=== PATIENT | male | born 1945 | race Caucasian/White ===

== ENCOUNTER 2016-07-22 12:35 | Day surgery (SDC) | payer MEDICARE, MEDICAID ==
[~2016-07-22] VITALS: Ht 180.3 cm; Wt 71.0 kg
[~2016-07-22 12:35] MED LIST: CHOL100045 PO; CHOL200025 PO; DONE5TAB30 PO; FOLI1TAB18 PO; FUR20 PO; GABA-502 PO; HYDR-656 PO; IBUP400T22 PO; KLO5T PO; Lactated Ringer's 1,000 ML IV ONE; MULT-1018 PO; OXCA150T PO; POTA10TA12 PO; PRAZ1CAP2 PO; RISP1SOL PO; TIOT18CA3 IH
[2016-07-22] MEDS ORDERED: Propofol 10,000 mCg/mL 20 mL Inj ONE (12:36)
[2016-07-22 13:05] VITALS: BP 127/78; PULSE 76; RESP 16; O2SAT 94
[2016-07-22] MEDS ORDERED: MetoCLOpramide 5 mg/mL 2 mL Inj IVPUSH PRN (13:10)
[2016-07-22] MEDS ORDERED: Lactated Ringer's 1,000 ML IV SCH (13:10)
[2016-07-22] MEDS ORDERED: Ondansetron 2 mg/mL 2 mL Inj IVPUSH PRN (13:10)
--- NOTE | 2016-07-22 13:18 | PCM.HPANE ---
Patient Data Date of Service: Jul 22, 2016 ([id number]) Surgeon Admitting Provider: Attending Provider:Corinne Ortiz MD Primary Care Physician:Heidi Cheung MD Other Provider:Garcia Bateman Anesthesia Reason for Visit Personal History Of Colon Polyps Ht/WT & BMI Height (Feet): 5 Height (Inches): 11 Weight (Kilograms): 71 Body Mass Index 21.00 Allergies Coded Allergies: No Known Allergies (Verified Allergy, Unknown, 02/04/16) Past Anesthesia History Anesthesia History: Denies:: Abnormal Airway, Anesthesia Reactions, Difficult Intubation, Fam Anesthesia Reaction, Fam Malignant Hypertherm, Malignant Hyperthermia Diabetes History Hx Diabetes?: No MRSA MRSA: No Medications Blood Thinner: Aspirin Last Dose Blood Thinner: Jun 23, 2016 Home Meds Incl Beta Pily: No Active Scripts Potassium Chloride ER 10 Meq [id number] Meq PO DAILY #60 TABLET Ref 0 TAKE WITH FOOD Prov:Lauro Flores MD 04/12/15 Furosemide 20 Mg Tab60 Mg PO DAILY #90 TABLET Ref 0 Prov:Lauro Flores MD 04/12/15 Reported Medications Cholecalciferol (Vitamin D3) (Vitamin D3)2,000 Unit Tablet2,000 Unit PO 07/21/16 Tiotropium [place] (Spiriva)18 Mcg Cap.w.dev18 Mcg IH DAILY #1 PKG Ref 0 07/21/16 Oxcarbazepine 150 Mg [id number] Mg PO BID 30 Days 07/21/16 Risperidone 1 Mg/1 Ml Solution1 Mg PO BID #1 BOTTLE Ref 0 02/04/16 Prazosin 1 Mg Capsule1 Mg PO HS 02/04/16 Gabapentin 300 Mg [id number] Mg PO TID Ref 0 02/04/16 Donepezil 5 Mg Tablet5 Mg PO HS Ref 0 02/04/16 Clonazepam 0.5 Mg Tablet0.5 Mg PO HS PRN For Anxiety Ref 0 02/04/16 Cholecalciferol (Vitamin D3) (Vitamin D)1,000 Unit Capsule1,000 Unit PO DAILY # 1 BOTTLE Ref 0 01/10/15 Folic Acid 1 Mg Tablet1 Mg PO DAILY 30 Days 01/10/15 Multivitamin (Multi Vitamin Daily)1 Each Tablet1 Each PO DAILY 30 Days Ref 0 01/10/15 hydrOXYzine Hcl (HydrOXYzine Hcl)25 Mg Iyzruf17 Mg PO DAILY PRN For Nausea 11/27/14 Ibuprofen 400 Mg [id number] Mg PO BID PRN For Pain Ref 0 09/26/14 Discontinued Reported Medications Amantadine 100 Mg [id number] Mg PO BID 02/05/16 Doxazosin Mesylate 4 Mg Tablet4 Mg PO HS #30 TABLET Ref 0 09/26/14 Lisinopril 5 Mg Tablet5 Mg PO DAILY #30 TABLET Ref 0 09/26/14 History HEENT History: Denies:: Abnormal Airway Difficult Intubation Dysphagia Hearing Problem Denture Type: Full- Upper Full- Lower Hx of Heart Problems?: No Cardiovascular History: Denies:: AICD Atrial Fibrillation Chest Pain Congestive Heart Failure Hypertension Pacemaker Valvular Heart Disease Hx of Respiratory Problem?: Yes Respiratory History: Positive for:: Asthma COPD Cough Dyspnea (FUENTES,SOB) Emphysema Pneumonia Denies:: Tuberculosis Use of C-PAP Machine Hx Neurologic Problems?: Yes Neurological History: Positive for:: Dementia Seizures (HX OF-R/T ETOH WITHDRAWAL) Denies:: CVA Other History/Comments schizoaffective disorder on lithium Hx of GI Problems?: Yes Gastrointestinal History: Positive for:: Gastroesphageal Reflux Denies:: Cirrhosis Diverticulitis Gall Bladder Disease Hiatal Hernia Liver Disease Rectal Bleeding Hx of Problems?: No Male Hx: Denies:: Prostate Problems Scrotal Mass Testicular Surgery Skin History: Positive for:: History Skin Disorders? (DERMATITIS) Denies:: Pressure Ulcers Hx Musculoskeletal Problems?: Yes Musculoskeletal History: Denies:: Fibromyalgia Joint Replacement Hx of Psycho/Social Problems?: Yes Psycho Social History: Positive for:: Anxiety Bipolar Disorder Hx Depression Denies:: Suicide Attempt Hx Surgeries?: Yes (STOMACH, KIDNEY) Hx Any Other Health Problems?: Yes Other History: Denies:: Cancer Endocrine Disease Hospitalization Thyroid Disease History Blood Transfusions: Denies:: Blood Transfusions Hx Diabetes: No Hx Alcohol Use: NoHx Substance Use: Yes (HX OF MARIJUANA) Smoking Status: Current Every Day Smoker Heavy Tobacco Smoker Have You Smoked inLast 12 mo: Yes Stop/Bang Treated for Sleep Apnea?: Yes Do You Have a CPAP Machine?: Yes STANLEY Risk Assessment: High Risk, =/>3 Yes Risk Assessment Category Category 1A: Patient has history of documented sleep apnea, and HAS NOT received any narcotic, sedative or anesthesia administration during this stay. Category 1B: Patient has history of documented sleep apnea, and HAS received any narcotic , sedative or anesthesia administration during this stay Category 2: Patient has SUSPECTED Obstructive Sleep Apnea, and HAS received any narcotic , sedative or anesthesia administration during this stay. Category 3: Patient has SUSPECTED Obstructive Sleep Apnea and HAS NOT received narcotic, sedative or anesthesia administration during this stay. Category 4: Outpatient in Procedural Areas with known sleep apnea or who screen positive for High Risk via the STOP/BANG questionnaire. Exam Exam General Appearance: Alert, Cooperative HEENT/AIRWAY: MP 2, Other (dentures) Lungs: Clear to Auscultation Heart: Exam Unremarkable Plan Impression Patient chart reviewed, patient interviewed and anesthestic plan with risks, benefits, and alternatives discussed, and informed consent obtained. NPO Status: 01/12@1500, broth @ 0800 ASA Physical Status: ASA3 Severe Disease Anesthetic Plan: GA Bene/Risks/Altern/Consents: Yes HP Complete Prior to Induction: Yes Jorden Arthur MD Jul 22, 2016 13:18
--- NOTE | 2016-07-22 14:03 | PCM.ANEP2 ---
Post Anesthesia Evaluation ASA/CMS Post Anesthesia VS in Patient's Normal Range?: Yes Resp Stable; Airway Patent?: Yes CV Function & Hydration Stable: Yes Mental Status Recovered?: Yes Pain control Satisfactory?: Yes N/V Control Satisfactory?: Yes Jorden Arthur MD Jul 22, 2016 14:03
--- NOTE | 2016-07-22 14:03 | PCM.ANEP1 ---
Post Anesthesia Phase 1 PACU Phase 1 Assessment Date of Service: Jul 22, 2016 ([id number]) Vital Signs 119/76, 36.5, 12, 82, 90% Vital Signs Date Time Temp Pulse Resp B/P Pulse Ox O2 Delivery O2 Flow Rate FiO2 07/22/16 13:05 36.7 76 16 127/78 94 Room Air Anesthetic Administered: GA Level of Alertness: Awake, talking CHAMBERLAIN's with Equal Strength: Yes Pain: No Nausea or Vomiting: No Oxygen Delivery: Room Air Lungs: Clear to Auscultation Dermatome Level: Full Sensation Summary uneventful sedation Jorden Arthur MD Jul 22, 2016 14:03
[2016-07-22 14:05] VITALS: BP 101/70; PULSE 68; RESP 14; O2SAT 100
[2016-07-22 14:15] VITALS: BP 123/72; PULSE 61; RESP 14; O2SAT 94
[2016-07-22 14:25] VITALS: BP 121/79; PULSE 68; RESP 14; O2SAT 94
--- NOTE | 2016-07-22 14:35 | ENDO ---
[address] [address] ENDOSCOPY PROCEDURE PATIENT: MAGDA RAMIREZ : 1945 MR#: [id number] ADMIT: 07/22/2016 JOB ID: [id number] DATE: 07/22/2016 PROCEDURE: Colonoscopy. INDICATION: Patient with a personal history of colon polyps. The previous colonoscopy was performed on February 05, 2016. At that time, there was a scar seen in the proximal transverse colon polyp. This was biopsied and biopsies were consistent with tubular adenoma. and, therefore, the patient has been brought back today to further inspect the area and remove any remaining polyp. Please see anesthesia report for details regarding ASA classification, Mallampati score and medications. INSTRUMENT USED: A PCF H 180 AL PREPARATION QUALITY: Was fair. PROCEDURE DETAILS: 1. After informed consent was obtained, the patient was brought into the GI suite, where he was placed on oxygen via nasal cannula and monitored with continuous pulse oximeter, telemetry and blood pressure monitoring. A time-out was performed. Then, he was placed in a left lateral decubitus position and medications were administered for sedation. Digital rectal examination was performed, which was unremarkable. The colonoscope was then inserted into the rectum and advanced under direct visualization to the cecum, which was identified by the presence of the ileocecal valve and appendiceal orifice. Once the cecum was reached, the colonoscope was then withdrawn back into the rectum as the mucosa and lumen were examined. In the rectum, retroflexion was performed. Following retroflexion, remaining air in the rectum was suctioned, and the procedure was completed. In the ascending colon just distal to the ileocecal valve, there was evidence of a previously placed tattoo. The sites distal and proximal to the tattoo were carefully inspected. No evidence of polyp or mass lesion seen. 2. In the cecum there was a diminutive polyp that was removed with cold biopsy forceps. 3. In the proximal transverse colon, there was evidence of a previously placed tattoo. Just adjacent to the site, there was a flat carpet type lesion that appeared adenomatous measuring approximately 1 cm. The flat lesion was lifted using normal saline and then removed in a single piece with a large hot snare. The resulting mucosal defect was approximated with the placement of three hemoclips. 4. Scattered diverticula were seen throughout the sigmoid colon. 5. Retroflexed views in the rectum were unremarkable. IMPRESSION: 1. A previously placed tattoo in the ascending colon and transverse colon. 2. Adjacent to the transverse colon tattoo, a flat carpet lesion that appeared adenomatous and that was removed with a hot snare. 3. Left-sided diverticulosis. RECOMMENDATIONS: 1. Avoid NSAIDs and anticoagulants for 72 hours. 2. Repeat colonoscopy in one year. COMPLICATIONS: None. ESTIMATED BLOOD LOSS: 0.
--- NOTE | 2016-07-27 12:37 | PATH ---
SURGICAL PATHOLOGY Attending Physician:Basilia Renteria CASE STATUS: Signed Out PATIENT NAME: MAGDA RAMIREZ PID: [id number] : 1945 DATE COLLECTED:07/22/2016 00:00 SPECIMEN: 1: Colon, Biopsy 2: Colon, Biopsy CLINICAL HISTORY: 1). CECAL POLYP X1 2). TRANSVERSE COLON POLYP X1 FINAL DIAGNOSIS: 1.CECAL POLYP: SESSILE SERRATED ADENOMA. 2.TRANSVERSE COLON POLYP: TUBULAR ADENOMA. ICD10 CODE D12.6 GROSS DESCRIPTION: The specimen is received in two formalin filled containers labeled with the patient's name. 1). Thus specimen is sublabeled "cecal polyp x1" and consists of multiple portions of tissue which aggregate to 0.4 x 0.4 x 0.2 CM. The specimen is entirely submitted in cassette 1A. 2). The specimen is sublabeled "transverse colon polyp x1" and consists of a 1.1 x 1.1 x 0.7 CM portion of tissue which is sectioned into 4 pieces and entirely submitted in cassette 2A. 07/23/2016 [facility] MICRO DESCRIPTION: See diagnosis. ICD-9 CODES: CPT CODES: 1: 81930 2: 28563 Electronically Signed Out Fran Knight MD [facility] [address], [place] [address] Technical component performed at [facility], [facility] [address], [place], [address]
== END 2016-07-22 23:59 | disposition home or self-care (01) ==
LOC: END 12:35
PROVIDERS: ATTEND Internal Medicine Gastroenterology
DX: D12.3 Benign neoplasm of transverse colon (principal); K57.30 Diverticulosis of large intestine without perforation or abscess without bleeding; D12.0 Benign neoplasm of cecum; I10 Essential (primary) hypertension; K58.9 Irritable bowel syndrome, unspecified; G47.33 Obstructive sleep apnea (adult) (pediatric); G47.52 REM sleep behavior disorder; J44.9 Chronic obstructive pulmonary disease, unspecified; J45.909 Unspecified asthma, uncomplicated; F03.90 Unspecified dementia, unspecified severity, without behavioral disturbance, psychotic disturbance, mood disturbance, and anxiety; F17.200 Nicotine dependence, unspecified, uncomplicated
CPT/HCPCS: 45380; 45381; J2250; J7120

== ENCOUNTER 2016-12-10 16:53 | Inpatient (IN) | payer MEDICARE, MEDICAID ==
[~2016-12-10] VITALS: Ht 180.3 cm; Wt 68.3 kg
[2016-12-10 16:53] VITALS: BP 131/81; PULSE 67; RESP 30; O2SAT 98
[~2016-12-10 16:53] MED LIST changes: -Lactated Ringer's 1,000 ML IV ONE
[2016-12-10 17:13] LABS: BASOPHILS % (AUTO) 0.5 % (0-3); EOSINOPHILS % (AUTO) 7.2 % (0-5); MONOCYTES % (AUTO) 9.4 % (4-12); Mean Corpuscular Hemoglobin 33.4 pg (27.0-35.0); Mean Corpuscular Volume 99.6 fL (81-100); NEUTROPHILS % (AUTO) 61.6 % (40-74); Platelet Count 305 bil/L (150-400)
[2016-12-10] MEDS ORDERED: PREN-56 PO (17:19)
[2016-12-10] MEDS ORDERED: FUR20 PO (17:19)
[2016-12-10] MEDS ORDERED: RISP1TAB3 PO (17:19)
[2016-12-10] MEDS ORDERED: POTA10TA12 PO (17:19)
[2016-12-10] MEDS ORDERED: OXCA150T PO (17:19)
[2016-12-10] MEDS ORDERED: ASPI-973 PO (17:19)
--- NOTE | 2016-12-10 17:19 | DRSVH ---
PROCEDURE: X-RAY CHEST ONE VIEW, PORTABLE ([id number]) INDICATIONS: chest pain TECHNIQUE: One view of the chest was acquired. COMPARISON: 10/09/2014 FINDINGS: Surgical changes and devices: None. Lungs and pleura: No pleural effusions or pneumothorax. There is chronic blunting of the right costo phrenic angle laterally. No acute infiltrate. Nodularity right midlung field above the minor fissure appears unchanged. Mediastinum: Mediastinal contours appear normal. Heart size is normal. Tortuous aorta. Bones and chest wall: No suspicious bony lesions. Overlying soft tissues appear unremarkable. IMPRESSION: No interval change to indicate acute cardiopulmonary abnormality. Dictated by: Saul Jonas M.D. on 12/10/2016 at 17:16 Approved by: Saul Jonas M.D. on 12/10/2016 at 17:17
[2016-12-10 17:37] LABS: TROPONIN T < 0.010 ug/L (0.0-0.011)
[2016-12-10 17:42] LABS: Magnesium 1.8 mg/dL (1.6-2.6)
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
[2016-12-10] MEDS ORDERED: Nitroglycerin 2% 1 Gm Ointment TOPICAL SCH (18:25)
[2016-12-10] MEDS ORDERED: Albuterol-Ipratropium 3 mL Inhalation Solution NEB ONE (18:25)
[2016-12-10] MEDS ORDERED: MethylprednisoLONE Sodium Succinate 62.5 mg/mL 2 mL Inj IVPUSH ONE (18:25)
[2016-12-10] MEDS ORDERED: Albuterol 2.5 mg/3 mL Inhalation Solution NEB ONE (18:25)
[2016-12-10] MEDS ORDERED: risperiDONE 1 mg Tablet PO ONE ×2 (18:30→23:25)
[2016-12-10 18:52] VITALS: PULSE 72; RESP 20; O2SAT 91
[2016-12-10] MEDS ORDERED: Alum-Mag Hydrox-Simeth 30 mL Suspension PO PRN (19:35)
[2016-12-10] MEDS ORDERED: Ondansetron 2 mg/mL 2 mL Inj IVPUSH PRN (19:35)
[2016-12-10] MEDS ORDERED: Senna-Docusate 8.6-50 mg Tablet PO PRN (19:35)
[2016-12-10] MEDS ORDERED: Polyethylene Glycol (PEG) 17 Gm Powder PO PRN (19:35)
[2016-12-10 19:55] VITALS: BP 154/64; PULSE 84; RESP 18; O2SAT 99
[2016-12-10 20:15] VITALS: BP 133/71; PULSE 100; RESP 18; O2SAT 92
[2016-12-10 20:47] LABS: Creatine Kinase 60 U/L (21-232); Magnesium 1.7 mg/dL (1.6-2.6)
--- NOTE | 2016-12-10 21:18 | PCM.HPMED ---
Subjective Date of Service Dec 10, 2016 Primary Provider: Admitting Physician: Anita Maharaj DO Primary Care Physician: Heidi Cheung MD Attending Physician: Anita Maharaj DO Admit Status: From the Emergency Department Chief Complaint: Chest pain and shortness of breath History of Present Illness: Chun Quintana is a 71 year old man with past history significant for COPD on CPAP which he uses intermittently, hypertension, and long history of smoking presented to [facility] emergency department today from urgent care due to shortness of breath and left-sided chest pressure daily intermittently for the last 3 weeks. Patient is a difficult historian given underlying mental illness, suspected schizophrenia. Records were reviewed to supplement patient's history. Patient states that this chest pain feels "similar to heartburn." Pertinent positives include shortness of breath, nausea, worsening pain on exertion. Patient also notes a productive cough with unchanged production. He denies any fevers, chills, hemoptysis, night sweats, orthopnea, paroxysmal nocturnal dyspnea. Patient was scheduled to undergo a spinal injection today when he complained of chest pain and was sent to urgent care for further evaluation. Patient currently denies any chest pain and states he has not had any chest pain since he has been in the hospital. In the emergency department his vital signs were stable. He was given 125 mg of Solu-Medrol, DuoNeb and albuterol nebulizers, full dose of aspirin, famotidine and 0.5 mg of clonazepam. Review of Systems: A comprehensive review of systems was conducted with the patient and found to be negative except as above in the History of Present Illness. Allergies Coded Allergies: No Known Allergies (Verified Allergy, Unknown, 02/04/16) Home Medications Chun Quintana. [id number] 1945 12/10/2016 03:50 PM 1/5 11/03/2016 aspirin 81 mg tablet,delayed release take 1 tablet by oral route every day 11/03/2016 clonazepam 0.5 mg tablet take 0.5 tablet by oral route at bedtime 08/24/2016 donepezil 5 mg tablet TAKE 1 TABLET BY MOUTH EVERY EVENING folic acid 1 mg tablet take 1 tablet by oral route every day furosemide 20 mg tablet take 1 tablet by oral route every day gabapentin 300 mg capsule take 1 capsule by oral route 2 times every day oxcarbazepine 150 mg tablet Take 1 tablet by oral route in the morning and 2 tablets in the evening every day potassium chloride ER 10 mEq capsule,extended release take 1 capsule by oral route every day with food prazosin 1 mg capsule 1 mg QHS 19 29 mg iron-1 mg chewable tablet chew 1 tablet by oral route every day risperidone 1 mg tablet take 1 tablet by oral route 2 times every day PMH Cognitive impairment Schizophrenia vs bipolar with limited records. Seizures in the distant past Dementia Insomnia Polyneuropathy Vitamin D deficiency Tremors Dermatitis Hypertension Adenomatous colonic polyps Cerebrovascular accident Irritable bowel syndrome COPD Surgical History Cholecystectomy Hernia repair Family History Father had prostate cancer. Mother had aneurysm of thoracic aorta and colon cancer. Paternal grandfather had throat cancer. Social History Hx Alcohol Use: Yes (has been without a drink for about 2 weeks) Hx Substance Use: Yes (hx. of marijuana) Smoking Status: Current Every Day Smoker Exam Vital Signs Vital Sign - Last Date Time Temp Pulse Resp B/P Pulse Ox O2 Delivery O2 Flow Rate FiO2 12/10/16 18:52 72 20 91 Room Air 12/10/16 16:53 37.2 131/81 2 Exam General: No acute distress, chronically ill appearing, appropriately interactive HEENT: Normocephalic, atraumatic. External ears without defect. Pupils equal, round, and reactive to light and accommodation. Anicteric sclerae, moist conjunctivae, and no lid lag. Oropharynx free of erythema and cobble stoning with moist mucosa. Neck: Supple with full range of motion. No jugular venous distension. No bruits. No lymphadenopathy or thyromegaly. Cardiovascular: Regular rate and rhythm with no murmurs, rubs, or gallops appreciated Pulmonary: Clear to auscultation bilaterally with no crackles, wheezes, or rhonchi. Normal respiratory effort with no use of accessory muscles. Abdomen: Bowel tones present. Soft, nontender, nondistended. No hepatosplenomegaly or masses appreciated. Extremities: No clubbing, cyanosis, edema, or lymphadenopathy appreciated. Right foot with second toe wound that appears to be healing and not infected. Skin: Normal temperature, turgor, and texture; no rash, ulcers, or subcutaneous nodules appreciated. Neurological: Cranial nerves grossly intact. Repeated tongue protrusion. Normal muscle strength, tone, and bulk. Psychiatric: Flat affect. Alert and oriented to person, place, and time. Difficult historian with tangential thinking. Lab and Diagnostics Result Diagram: 12/10/16 1630 12/10/16 1630 X-Rays, CTs and MRIs X-RAY CHEST ONE VIEW, PORTABLE ([id number]) IMPRESSION: No interval change to indicate acute cardiopulmonary abnormality. Dictated by: Saul Jonas M.D. on 12/10/2016 at 17:16 Assessment & Plan Chun Quintana is a 71 year old man with past history significant for COPD on CPAP which he uses intermittently, hypertension, and long history of smoking presented to [facility] emergency department today from urgent care due to shortness of breath and left-sided chest pressure daily intermittently for the last 3 weeks. Chest pain concerning for angina in a difficult historian, present on admission , active -Differential includes esophageal spasm, gastritis -Risk stratification in this patient is difficult. First troponin negative. -Telemetry -Fasting lipid panel in a.m., A1c -Aspirin 81 mg, clipodogrel 75 mg -Atorvastatin 40 mg HS -Echo in a.m. -Nuclear Medicine stress test in a.m. -Trend troponin -NTG -EKG PRN -Morphine PRN pain -NPO after midnight -Hold beta rohini for stress test. Likely COPD and possible exacerbation, present on admission, active -CXR consistent with COPD but patient does not endorse this diagnosis -Patient given 125 of Solu-Medrol -Respiratory viral PCR -Sputum culture -DuoNeb every 4 hours while awake, albuterol every 2 hours as needed for breath -Prednisone 40 mg 5 days -Azithromycin Left 2nd toe wound, present on admission, active -Wound consultation in AM -Does not appear infected at this time -Will monitor. Chronic issues, present on admission, stable: Hypertension -Continue home medications Tobacco dependence -Nicotine patch Polyneuropathy -Continue gabapentin Psychiatric disorder NOS -Continue home medications CODE STATUS: FULL CODE per patient. No family currently at bedside. Consider revisiting this question with patient's sister when she visits. Patient is admitted under observation status with expected length of stay less than 2 midnights due to severity of presenting symptoms, risk of adverse event, and complexity of treatment plan. Resuscitation Status: CPR: Attempt Resuscitation Attending Statement The patient was seen and examined together with house staff on 12/10/2016 and I agree with the history, exam and plan as outlined in the note above. Ada Andres DO Dec 10, 2016 19:51 Anita Maharaj DO Dec 11, 2016 01:24
[2016-12-10] MEDS: Sodium Chloride LOK Flush 10 mL Syringe IVFLUSH SCH (21:23)
[2016-12-10] MEDS ORDERED: risperiDONE 1 mg Tablet PO SCH (21:41)
[2016-12-10] MEDS ORDERED: Nitroglycerin 2% 1 Gm Ointment TOPICAL ONE (21:42)
[2016-12-10] MEDS ORDERED: HYDR-3797 PO ×2 (21:53→21:54)
[2016-12-10] MEDS ORDERED: LAMO25TA PO (21:56)
[2016-12-10] MEDS ORDERED: LISI-571 PO (22:17)
[2016-12-10] MEDS ORDERED: CARB100T47 PO (22:18)
[2016-12-10] MEDS ORDERED: OXCA300T2 PO (22:20)
[2016-12-10] MEDS ORDERED: FLUT15.88 NS (22:22)
[2016-12-10] MEDS ORDERED: RISP2TAB3 PO (22:30)
[2016-12-10 23:21] VITALS: BP 133/76; PULSE 87; RESP 16; O2SAT 92
[2016-12-10] MEDS ORDERED: lamoTRIgine 25 mg Tablet PO ONE (23:25)
[2016-12-10] MEDS ORDERED: carBAMazepine 100 mg ER12 Tablet PO ONE (23:25)
[2016-12-10 23:37] LABS: APPEARANCE,URINE HAZY (CLEAR,HAZY); COLOR,URINE YELLOW (YELLOW); OCCULT BLOOD,URINE NEGATIVE (NEGATIVE); PH,URINE 6.5 (5.0-8.0); UROBILINOGEN,URINE NORMAL (NORMAL)
[2016-12-10] MEDS: Heparin 5,000 Unit/mL Inj SUBQ SCH (23:53)
[2016-12-11] VITALS (9 sets, daily range): BP systolic 127–140; BP diastolic 71–80; PULSE 71–102; RESP 17–24; O2SAT 89–95
--- NOTE | 2016-12-11 | NUR ---
Admit note Pt arrived to [facility] at 1999. Placed pt on tele. Pt stating came to ER due to chest pain, denies chest pain at this time. Pt is alert and oriented but forgetful. Admit done by admit RN. Pt' sister brought in pt's home meds, updated med rec, notified, meds sent home with sister. Pt on 2L O2, oxygen sat low 90's, pt short of breath with exertion, standing at side of bed for urinal use, pt's own FWW in room. Call light within reach, frequent rounding.
[2016-12-11 03:05] LABS: BASOPHILS % (AUTO) 0.2 % (0-3); EOSINOPHILS % (AUTO) 0 % (0-5); MONOCYTES % (AUTO) 0.5 % (4-12); Mean Corpuscular Hemoglobin 33.1 pg (27.0-35.0); Mean Corpuscular Volume 99.8 fL (81-100); NEUTROPHILS % (AUTO) 91.8 % (40-74); Platelet Count 194 bil/L (150-400)
[2016-12-11 03:48] LABS: Creatine Kinase 49 U/L (21-232)
[2016-12-11] MEDS: Fluticasone 0.05% 15 Spray/2 Gm 16 Gm Nasal Spray NASAL SCH ×2 (08:30→21:48)
[2016-12-11] MEDS: Sodium Chloride LOK Flush 10 mL Syringe IVFLUSH SCH ×3 (08:43→21:49)
[2016-12-11] MEDS: Heparin 5,000 Unit/mL Inj SUBQ SCH ×2 (08:44→20:23)
--- NOTE | 2016-12-11 12:32 | NUR ---
THOMAS explained and signed. Copy of THOMAS and Medicare self administered medication information given to pt.
[2016-12-11] MEDS ORDERED: Albuterol-Ipratropium 3 mL Inhalation Solution NEB ONE (13:05)
--- NOTE | 2016-12-11 13:48 | NUR ---
Dyspnea/Nebs Patient sob this a.m., neb treatments requested during rounds. Patient transported to [facility], call from July requesting patient to have a neb tmt, made her aware there are currently no nebs ordered, /Martin team paged by charge nurse & primary RN requesting nebs. Ordered, solution delivered to [facility] lab by primary RN, patient was on 3-4L NC appeared at ease @ rest w/ mild sob. July stated patients SpO2 was 83% on RA after transporting to [facility] on RA. Coarse lung sounds, moist/productive cough, no wheezes noted by primary RN this a.m. before transporting to [facility] @ 1130. [facility] called @ 1355 to f/u on efficasy of neb tmt, stated it was effective.
[2016-12-11] MEDS: Albuterol-Ipratropium 3 mL Inhalation Solution NEB PRN ×2 (17:31→20:42)
[2016-12-11] MEDS ORDERED: guaiFENesin 20 mg/mL 10 mL Syrup PO PRN (18:15)
--- NOTE | 2016-12-11 18:58 | PCM.PNMED ---
Subjective Date of Service Dec 11, 2016 Subjective During my evaluation of patient, he states he is continuing to have intermittent chest pressures discomfort but does not describe is no overt pain. Denying fever chills or sweats at this time. Continues to feel very congested and suffering from intermittent wheezing and cough. Cough deems exacerbate chest pain a little bit. Otherwise he has no acute complaints. Exam Vital Signs Vital Sign - Last Date Time Temp Pulse Resp B/P Pulse Ox O2 Delivery O2 Flow Rate FiO2 12/11/16 17:32 91 22 89 Nasal Cannula 3.00 12/11/16 14:50 36.7 137/80 Intake and Output 12/10/16 12/10/16 12/11/16 Cumulative From/Thru 15:00 23:00 07:00 12/10/16 16:53 - 12/11/16 06:48 Intake Total 0 ml 0 ml Output Total 1200 ml 1200 ml Balance -1200 ml -1200 ml Intake Oral 0 ml 0 ml Output Urine Total 1200 ml 1200 ml General: Alert, Oriented X3, Cooperative, Moderate Distress Mouth: Mucous Membr Moist/[place] Chest & Lungs: Coarse breath sounds, Expiratory wheezes Cardiovascular: Regular Rate/Rhythm Abdomen: Non-tender, Non-distended IVs and Medications Medications Reviewed: Medications were reviewed in detail Lab and Diagnostics Result Diagram: 12/11/16 0130 12/11/16 0130 X-Rays, CTs and MRIs X-RAY CHEST ONE VIEW, PORTABLE ([id number]) IMPRESSION: No interval change to indicate acute cardiopulmonary abnormality. Dictated by: Saul Jonas M.D. on 12/10/2016 at 17:16 Assessment & Plan Chun Quintana is a 71 year old man with past history significant for COPD on CPAP which he uses intermittently, hypertension, and long history of smoking presented to [facility] emergency department today from urgent care due to shortness of breath and left-sided chest pressure daily intermittently for the last 3 weeks. Chest pain concerning for angina in a difficult historian, present on admission , active -Differential includes esophageal spasm, gastritis -Risk stratification in this patient is difficult. First troponin negative. -Telemetry continued -Aspirin 81 mg, clipodogrel 75 mg continue -Atorvastatin 40 mg HS continue -Echo remains pending. -Nuclear Medicine stress test conducted this morning was equivocal. Resting study is pending in a.m.. -Trended troponins which remained negative -Morphine PRN pain Likely COPD and possible exacerbation, present on admission, active -CXR consistent with COPD but patient does not endorse this diagnosis -Patient given 125 of Solu-Medrol -Respiratory viral PCR unremarkable -Sputum culture pending -DuoNeb every 4 hours while awake, albuterol every 2 hours as needed for breath -Prednisone 40 mg 5 days -Azithromycin - Guaifenesin on additionally prescribed for congestion - We will provide BiPAP as needed for increased work of breathing. Left 2nd toe wound, present on admission, active -Wound consultation in AM -Does not appear infected at this time -Will continue monitor. Chronic issues, present on admission, stable: Hypertension -Continue home medications Tobacco dependence -Nicotine patch Polyneuropathy -Continue gabapentin Psychiatric disorder NOS -Continue home medications Pain Evaluation: Adequate Pain Control Resuscitation Status: CPR: Attempt Resuscitation Time spent 30 minutes Mj King DO Dec 11, 2016 18:58 Resuscitation Status: CPR: Attempt Resuscitation Mj King DO Dec 11, 2016 18:58
[2016-12-11] MEDS: OXcarbazepine 300 mg Tablet PO SCH (21:48)
[2016-12-11] MEDS: risperiDONE 2 mg Tablet PO SCH (21:49)
[2016-12-12] VITALS (13 sets, daily range): BP systolic 114–144; BP diastolic 64–81; PULSE 69–98; RESP 14–26; O2SAT 87–95
[2016-12-12] MEDS: Heparin 5,000 Unit/mL Inj SUBQ SCH ×3 (01:43→17:13)
--- NOTE | 2016-12-12 06:27 | NUR ---
smoking / respiratory patient returned from the bathroom smelling of cigarette smoke and very SOB. Tachy- 120. Patient handed over a bag of tobacco, rubber boots and shoes repairer and small brown pipe w/ two separate pieces. These items placed into a plastic bag and labeled w/ his name and room number. Tele now SR 80. Patient 82% RA, o2 2lpm via NC applied, sats 93%. RT recommends home o2 and nebs. Will pass on to day shift.
[2016-12-12] MEDS: Albuterol-Ipratropium 3 mL Inhalation Solution NEB PRN ×3 (07:16→15:32)
[2016-12-12] MEDS: Fluticasone 0.05% 15 Spray/2 Gm 16 Gm Nasal Spray NASAL SCH ×2 (09:32→21:26)
[2016-12-12] MEDS: Sodium Chloride LOK Flush 10 mL Syringe IVFLUSH SCH ×2 (09:36→17:13)
--- NOTE | 2016-12-12 10:24 | NUR ---
Diet/Nicotine patch: Patient ate breakfast prior to resting portion of MIBI. NM notified. Patient instructed to not eat or drink, except for water, until exam completed this afternoon. Patient agreed. Nicotine patch removed per NM staff request.
--- NOTE | 2016-12-12 10:58 | DRSVH ---
[facility] [address] [place] [address] Echocardiogram Report Name: MAGDA RAMIREZ WStudy Date: 12/12/2016 Height: 71 in Hospital Exam Location: [facility] Weight: 154 lb Gender: Male BSA: 1.9 m2 : 1945 Age: 71 yrs BP: 127/71 m mHg Reason For Study: Chest pain Ordering Physician: Martin Reyna Performed By: Douglas Arredondo Referring Physician: COCO CURIEL Interpretation Summary The left ventricle is normal in size. Left ventricular systolic function is normal without focal wall motion abnormalities. The ejection fraction is estimated to be 60-65%. Septal motion is consistent with conduction abnormality. The right ventricle grossly appears normal in size with probable normal systolic function. Pulmonary artery pressures cannot be estimated because of the lack of a measurable TR jet velocity. The left atrium grossly appears normal in size. The right atrium is mildly dilated. There is no significant valvular heart disease. The aortic root is normal size. Procedure: A two-dimensional transthoracic echocardiogram with color flow and Doppler was performed. Images were difficult secondary to breathing issues. There is no prior echocardiogram noted for this patient. The patient was in normal sinus rhythm during the exam. Left Ventricle: The left ventricle is normal in size. There is normal left ventricular wall thickness. Left ventricular systolic function is normal without focal wall motion abnormalities. The ejection fraction is estimated to be 60-65%. Septal motion is consistent with conduction abnormality. Assessment of diastolic parameters indicates normal left ventricular diastolic function and normal filling pressures. Right Ventricle: The right ventricle grossly appears normal in size with probable normal systolic function. Atria: The left atrium grossly appears normal in size. The right atrium is mildly dilated. The interatrial septum is intact with no evidence for an atrial septal defect. Mitral Valve: The mitral valve is normal. There is no mitral regurgitation noted. Aortic Valve: The aortic valve is normal in structure and function. No aortic regurgitation is present. Tricuspid Valve: The tricuspid valve is not well visualized, but is grossly normal. Pulmonary artery pressures cannot be estimated because of the lack of a measurable TR jet velocity. Pulmonic Valve: The pulmonic valve leaflets are thin and pliable; valve motion is normal. There is a trace or physiologic amount of pulmonic regurgitation. There is no significant valvular heart disease. Great Vessels: The aortic root is normal size. The ascending aorta could not be visualized. The pulmonary artery is normal size. The IVC is of normal diameter and collapses greater than 50% with a sniff. This suggests a low right atrial pressure of 3 mm Hg. Pericardium/ Pleura There is no pericardial effusion. There is no pleural effusion. MMode/2D Measurements & Calculations LVIDd: 4.9 cm RA long axis LVOT diam LVIDs: 2.5 cm LA A4 area: 14.0 cm FS: 49.4 % LA length (vol): 4.2 cm RA area AoV Opening EPSS: 0.89 cm IVC diam: 1.9 cm IVSd: 0.83 cm : 21.8 cm Ao root diam LVPWd: 1.0 cm RA vol: 75.1 ml: 4.0 cm RA : 39.8 mm2 LV shields. diameter/BSA LV sys. diameter/BSA (cm/m^2): 2.6 (cm/m^2): 1.3 Doppler Measurements & Calculations Ao V2 max MV E max tomas MV E/A: 0.90 MV dec time : 123.6 cm/sec : 45.9 cm/sec Med Peak E' Tomas : 0.27 sec Ao max P.1 mmHgMV A max tomas Ao mean PG : 51.2 cm/sec E/E' med: 6.4 Lat Peak E' Tomas LVOT Max Tomas : 93.8 cm/sec E/E' lat: 5.9 FRANCISCO(I,D): 3.7 cm E/e' average: 6.1 sev ratio: 0.83 Ao V2 mean LV V1 max PG FRANCISCO indexed to BSA : 84.1 cm/sec (cm^2/m^2): 1.9 Ao V2 VTI: 20.6 cm LV V1 VTI: 17.0 cm FRANCISCO(V,D): 3.4 cm2 Reading Physician:HANH
--- NOTE | 2016-12-12 11:31 | NUR ---
Chest Pain: Patient complained of upper chest "dull, tightness", stating that it comes and goes. Denies shortness of breath, BP 114/75, HR 80, O2 2L 93% saturation. MD notified, no EKG or additional orders received. RT administering nebulizer treatment.
--- NOTE | 2016-12-12 14:30 | NUR ---
Off Unit: Patient transported off unit to [place] via wheelchair accompanied by [place] tech @ approx 1430. SR 70s w/IVCD per manager telemarketing, child monitor notified of transport. No apparent distress noted at time of transport.
--- NOTE | 2016-12-12 16:06 | NUR ---
Social Work: Brief Note / Multidisciplinary Rounds Data: Pt is a 71 y/o male admitted for chest pain resolved. EMR reviewed, pt discussed in rounds. MD states pt likely to d/c tomorrow, no d/c planning needs anticipated at this time. SENIOR SYSTEMS ANALYST will continue to follow and complete assessment at a later time due to low staffing. Assessment: Pt from [facility]. Plan: Pt will d/c home via POV when medically stable. SENIOR SYSTEMS ANALYST will continue to follow for possible d/c needs and complete assessment at a later time due to low staffing. ASTRID Saunders
--- NOTE | 2016-12-12 17:17 | PCM.PNMED ---
Subjective Date of Service Dec 12, 2016 Subjective Patient notes feeling somewhat improved overnight. Breathing is less labored still not quite back to his baseline. Still has intermittent chest tightness or pressure she is experiencing intermittently for the last few days. There is rather certainly benefit from nebulizer treatments, he does note increasing congestion, labored breathing when he gets far enough away from nebulizer treatments. Exam Vital Signs Vital Sign - Last Date Time Temp Pulse Resp B/P Pulse Ox O2 Delivery O2 Flow Rate FiO2 12/12/16 16:42 36.8 80 22 144/81 92 Nasal Cannula 2.00 Intake and Output 12/11/16 12/11/16 12/12/16 Cumulative From/Thru 15:00 23:00 07:00 12/10/16 16:53 - 12/12/16 05:38 Intake Total 665 ml 360 ml 1025 ml Output Total 1025 ml 750 ml 2975 ml Balance -360 ml -390 ml -1950 ml Intake Oral 645 ml 360 ml 1005 ml IV Total 20 ml 20 ml Output Urine Total 1025 ml 750 ml 2975 ml Exam General: Alert, Oriented X3, Cooperative, Moderate Distress, some increased work of breathing. Mouth: Mucous Membrane Moist/[place] Chest & Lungs: Coarse breath sounds, Expiratory wheezes Cardiovascular: Regular Rate/Rhythm Abdomen: Non-tender, Non-distended IVs and Medications Medications Reviewed: Medications were reviewed in detail Lab and Diagnostics Result Diagram: 12/11/16 0130 12/11/16 0130 X-Rays, CTs and MRIs X-RAY CHEST ONE VIEW, PORTABLE ([id number]) IMPRESSION: No interval change to indicate acute cardiopulmonary abnormality. Dictated by: Saul Jonas M.D. on 12/10/2016 at 17:16 Assessment & Plan Chun Quintana is a 71 year old man with past history significant for COPD on CPAP which he uses intermittently, hypertension, and long history of smoking presented to [facility] emergency department today from urgent care due to shortness of breath and left-sided chest pressure daily intermittently for the last 3 weeks. Chest pain concerning for angina in a difficult historian, present on admission , active -Differential includes esophageal spasm, gastritis -Risk stratification in this patient is difficult. First troponin negative. -Telemetry continued -Aspirin 81 mg, clipodogrel 75 mg continue -Atorvastatin 40 mg HS continue -Echo remains pending. -Nuclear Medicine stress test conducted yesterday morning was equivocal. Resting study complete in result is still pending. -Trended troponins which remained negative -Morphine PRN pain COPD in state of exacerbation, present on admission, active -CXR consistent with COPD but patient does not endorse this diagnosis -Patient given 125 of Solu-Medrol -Respiratory viral PCR unremarkable -Sputum culture pending - DuoNeb therapy is to transition to standing given benefits and withdrawal wheezing when patient misses dosing. His work of breathing as well as concerning and requires more intensive therapy. -Prednisone 40 mg 5 days -Azithromycin continued - Guaifenesin on additionally prescribed for congestion - We will provide BiPAP as needed for increased work of breathing. Left 2nd toe wound, present on admission, active -Wound consultation in AM -Does not appear infected at this time -Will continue monitor. Chronic issues, present on admission, stable: Hypertension -Continue home medications Tobacco dependence -Nicotine patch Polyneuropathy -Continue gabapentin Psychiatric disorder NOS -Continue home medications Disposition : Patient admitted for cardiac evaluation in addition to management of acute COPD exacerbation. Given persistent and increased work of breathing patient will remain overnight for further evaluation while we await the results of cardiac studies. Anticipate discharge in the morning with improved respiratory function. He is not yet stable on room air which would be his baseline. Pain Evaluation: Adequate Pain Control Resuscitation Status: CPR: Attempt Resuscitation Time spent 30 minutes Mj King DO Dec 12, 2016 17:17
--- NOTE | 2016-12-12 18:18 | DRSVH ---
PROCEDURE: 2 DAY STRESS TEST Rest and pharmacological stress myocardial perfusion SPECT with gated imaging and ejection fraction RADIOPHARMACEUTICAL: 19.7 mCi Tc-99m tetrafosmin IV at rest and 21.3 mCi Tc-99m tetrafosmin IV at pea k effect of pharmacological stress. [id number] was performed. INDICATIONS: CP. TECHNIQUE: Radiopharmaceutical was injected at peak stress test, and also at rest. SPECT images wer e obtained. SPECT myocardial perfusion images were displayed in short axis, horizontal long axis, an d vertical long axis views. Gated images were reviewed using Auto[employer] software. COMPARISON: None. CARDIAC STRESS: A pharmacologic stress test was performed under the supervision of an attending staff, using an infus ion of Regadenoson. Hemodynamic data: There is normal blood pressure and heart rate response to pharmacologic stress. Symptoms: The patient denied anginal chest pain. Aminophylline: 100 mg IV EKG: No diagnostic changes of ischemia; no ectopy. FINDINGS: Raw data: There is good myocardial uptake of radiotracer. No significant motion artifacts. Left ventricle function: Gated images demonstrate normal left ventricular wall thickening. No segme ntal wall motion abnormalities. Left ventricle resting end diastolic volume is 98 mL. Left ventricle stress ejection fraction is 65%; normal range is above 45%. Myocardial perfusion: On the supine stress images there is a large but mild intensity along the infe rior and apex was dramatically improves with prone stress imaging except for the apical region. On th e supine rest imaging the apical perfusion defect slightly improves. On quantitative analysis the sum stress score is 2 and the sum rest score is zero and suggestive of very mild ischemia if indeed pres ent. IMPRESSION: Equivocal results. This is either a normal myocardial perfusion study or there is possibl e minimal ischemia at the apex. Either way, this is a low risk study. LV ejection fraction is normal with normal LV wall motion. Pharmaceutical stress EKG is nondiagnostic. Base on today's study, it is unlikely patient's chest pain is cardiogenic. Dictated by: Guicho Stratton Jr., M.D. on 12/12/2016 at 18:00 Approved by: Guicho Stratton Jr., M.D. on 12/12/2016 at 18:16
--- NOTE | 2016-12-12 19:00 | NUR ---
Inpatient status effective today, 12/12/16, [facility] signed
[2016-12-12] MEDS: Albuterol-Ipratropium 3 mL Inhalation Solution NEB SCH ×2 (20:13→21:30)
[2016-12-12] MEDS: OXcarbazepine 300 mg Tablet PO SCH (21:26)
[2016-12-12] MEDS: risperiDONE 2 mg Tablet PO SCH (21:28)
--- NOTE | 2016-12-12 23:01 | NUR ---
Respiratory: Pt reports breathing is "tight", states scheduled nebs per RT are effective. Congested cough now productive with creamy, yellow, thin sputum. RT reported upon entering room, pt had the NC up on his forehead, SpO2 was 87%. RT placed pt on an oxymask with 2L, pt states this was a good idea and he feels like he gets more air and it stays in place better.
[2016-12-13] VITALS (12 sets, daily range): BP systolic 114–137; BP diastolic 56–90; PULSE 68–90; RESP 16–26; O2SAT 89–95
[2016-12-13] MEDS: Albuterol-Ipratropium 3 mL Inhalation Solution NEB PRN ×3 (00:43→20:01)
[2016-12-13] MEDS: Heparin 5,000 Unit/mL Inj SUBQ SCH ×3 (01:00→17:11)
[2016-12-13] MEDS: Sodium Chloride LOK Flush 10 mL Syringe IVFLUSH SCH ×3 (01:00→17:11)
[2016-12-13] MEDS: Albuterol-Ipratropium 3 mL Inhalation Solution NEB SCH (04:55)
[2016-12-13] MEDS: Fluticasone 0.05% 15 Spray/2 Gm 16 Gm Nasal Spray NASAL SCH ×2 (05:40→19:52)
[2016-12-13] MEDS: Pantoprazole 40 mg ER24 Tablet PO SCH (10:57)
--- NOTE | 2016-12-13 14:06 | NUR ---
Inpatient Wound Nurse Patient seen by [facility] RN for toe wound. R foot second toe frontal plane noted with intact callous which may be contributing source to misshapen nail that curls upward (proximal). Dried blood noted under nail bed and possibly slightly avulsed. Patient stated that he catches nails on socks and bedding frequently and is not able to trim nails as short as he would like because they are thickened. Fungus noted in numerous nails, including R great toe which is black appears close to falling off. Patient requires sanding from certified foot care nurse or podiatry. Nearly every nail requires paring and or sanding. Patient should be seen by [facility] or podiatry after discharge. No specific wound care identified at this time.
--- NOTE | 2016-12-13 14:37 | PCM.PNMED ---
Subjective Date of Service Dec 13, 2016 Subjective Patient complained burning sensation on his stomach, diffusely over his chest Patient is on every 4 hours duonebs standing , denied difficulty breathing or cough noticed that Prednisone was not started after patient received Solu [id number] on 12/10 Patient underwent stress test okay, but felt like "it was shock" but couldn't illiterate further what it was like denied chest pain Exam Vital Signs Vital Sign - Last Date Time Temp Pulse Resp B/P Pulse Ox O2 Delivery O2 Flow Rate FiO2 12/13/16 11:25 84 16 94 Nasal Cannula 2.00 12/13/16 08:58 37.0 114/56 Intake and Output 12/12/16 12/12/16 12/13/16 Cumulative From/Thru 15:00 23:00 07:00 12/10/16 16:53 - 12/13/16 06:43 Intake Total 1136 ml 500 ml 2661 ml Output Total 750 ml 660 ml 4385 ml Balance 386 ml -160 ml -1724 ml Intake Oral 1136 ml 500 ml 2641 ml IV Total 20 ml Output Urine Total 750 ml 660 ml 4385 ml Exam NAD, comfortably laying down on the bed no JVD, MMM, no LAD RRR, nl s1, s2 no mrg CTAB, no w,c S,ND,NT,normoactive BS+ warm, no edema, pulses 2/2 IVs and Medications Medications Reviewed: Medications were reviewed in detail Lab and Diagnostics Result Diagram: 12/11/16 0130 12/11/16 0130 X-Rays, CTs and MRIs X-RAY CHEST ONE VIEW, PORTABLE ([id number]) IMPRESSION: No interval change to indicate acute cardiopulmonary abnormality. Dictated by: Saul Jonas M.D. on 12/10/2016 at 17:16 Assessment & Plan Chun Quintana is a 71 year old man with past history significant for COPD on CPAP which he uses intermittently, hypertension, and long history of smoking presented to [facility] emergency department today from urgent care due to shortness of breath and left-sided chest pressure daily intermittently for the last 3 weeks. Acute, active Chest pain likely due to GI origin: PUD, GERD. stress test 12/12 was equivocal. EKG, troponin, TTE not suggestive of ACS. - Today patient reported GERD-like symptoms, start panprazole 40mg and see the response -Continue aspirin, atorvastatin but discontinue Plavix -Defer further cardiac workup at this point Chronic respiratory failure due to Probable COPD exacerbation in the setting of chronic smoking, POA, CXR consistent with COPD but patient does not endorse this diagnosis, Patient given 125 of Solu-Medrol in the ED. Respiratory viral PCR unremarkable -Stop duonebs every 4 standing, switched to as needed today -We will continue to hold prednisone as patient's respiratory status remained stable without -pt still hypoxic to 89%, given patient is not on home oxygen, will try wean off O2 prior to d/c, SpO2 target 88-92% Chronic issues, present on admission, stable: Hypertension, Continue home medications Tobacco dependence, controlled craves with Nicotine patch Polyneuropathy, Continue gabapentin Psychiatric disorder NOS, Continue home medications Disposition : Likely 1-2days if patient remains stable clinically Resuscitation Status: CPR: Attempt Resuscitation Time spent 35 minutes Emily Givens MD Dec 13, 2016 14:37
--- NOTE | 2016-12-13 14:38 | NUR ---
Social Work-initial assessment/ multidisciplinary rounds: Data:See initial assessment. Pt is a 71 y/o male who was admitted on 12/10/16 for chest pain resolved per H&P. Pt's insurance is [employer] and [facility] [employer] and PCP is Heidi Cheung MD. EMR reviewed. Pt's readmission score is 3. SW met with pt at bedside, SW role explained. Pt is alert and oriented x3. Pt resides in an apartment alone where he remains independent with ADLS. Pt does not drive and does not use any MDE. Pt has no HH or SNF history. Pt has no intermediate accountant care insurance or VA benefits. SW discussed DPOA/ advanced directive, pt confirms he has completed this, SW encouraged a copy to be brought in. Pt has [employer] caregivers and his CM is Veronica Scott, updated clinicals have been faxed. Pt's sister to provide transport home. SW provided pt with discharge planning checklist and encouraged him to call with any questions. SW provided phone number and plan on white board in room. SW will continue to follow. Assessment:Pt who has caregivers. Plan:Anticipate pt to return home when medically stable via POV. PT to continue with [employer] caregivers. SW will continue to follow. ASTRID Flower Addendum: 12/13/16 at 1442 by VERONICA LADD Amended: Links added.
[2016-12-13] MEDS: risperiDONE 2 mg Tablet PO SCH (19:53)
[2016-12-13] MEDS: OXcarbazepine 300 mg Tablet PO SCH (19:55)
[2016-12-14] VITALS (7 sets, daily range): BP systolic 116–124; BP diastolic 65–81; PULSE 71–92; RESP 16–22; O2SAT 82–98
[2016-12-14] MEDS: Sodium Chloride LOK Flush 10 mL Syringe IVFLUSH SCH ×2 (01:54→07:41)
[2016-12-14] MEDS: Heparin 5,000 Unit/mL Inj SUBQ SCH ×2 (01:54→07:41)
--- NOTE | 2016-12-14 05:19 | NUR ---
Respiratory: Pt seems more at ease tonight with breathing. Is on the NC with O2 at 1.5L at this time, last sat was 95%. Has not called out tonight for increased oxygen as he did last night. Last evening, pt was talking about positive changes he can make and stated "I don't want a cigarette, I want to breath." Was able to get several hours of sleep tonight.
[2016-12-14] MEDS: Pantoprazole 40 mg ER24 Tablet PO SCH (07:40)
[2016-12-14] MEDS: Fluticasone 0.05% 15 Spray/2 Gm 16 Gm Nasal Spray NASAL SCH (07:42)
[2016-12-14] MEDS: Albuterol-Ipratropium 3 mL Inhalation Solution NEB PRN ×2 (08:16→12:22)
[2016-12-14] MEDS ORDERED: Fluticasone-Salmeterol 100-50 Inhaler INHALATION SCH (08:30)
--- NOTE | 2016-12-14 08:33 | ABG ---
DateTimeAnalyzed 08:26:00 -_ pH ____7.391 - 7.350 7.450 pCO2 ___54.3__ -mmHg 35.0 45.0 pO2 ___50.8__ -mmHg 69.0 116 HCO3- ___32.3__ -mmol/L 22.0 26.0 ABE ____6.1__ -mmol/L -2.0 2.0 tHb ___14.3__ -g/dL O2Hb ___82.8__ -% COHb ____1.8__ -% MetHb ____0.8__ -% sO2 ___85.0__ -% 25.0 FIO2 ___28.0__ -% Drawn By jw - Date/Time Notified____ 08:32:00 -_ Spontaneous_RR ___22.0__ -b/min Oxygen Device 1 __CANNULA - Notified By jj - Notified Whom __dr song - B 758 -mmHg tO2 ___16.7__ -Vol% Marino test _Positive -
--- NOTE | 2016-12-14 10:34 | NUR ---
Social Work: Readiness for Discharge/Multidisciplinary Rounds D: EMR reviewed. Pt is on day 4 of hospitalization for chest pain per H&P. Per rounds, pt to be assessed for home O2 by Respiratory and likely discharge home today via POV. A: Pt who has [facility] caregiver at baseline P: Pt likely to discharge home today via POV pending home O2 assessment from Respiratory. SW will continue to follow for needs or MD orders that may arise prior to discharge. ASTRID Whitaker
[2016-12-14] MEDS ORDERED: PANT40TA3 PO (11:36)
[2016-12-14] MEDS ORDERED: ATOR40TA69 PO (11:36)
[2016-12-14] MEDS ORDERED: ADV100INH INHALATION (11:36)
[2016-12-14] MEDS ORDERED: NICO1PAT6 TOPICAL (11:36)
--- NOTE | 2016-12-14 11:48 | NUR ---
Social Work: Discharge D: EMR reviewed. Pt is on day 4 of hospitalization for chest pain per H&P. Per MD, pt will not need home O2 at discharge. No SW discharge needs identified, no MD orders received. A: Pt who has [employer] caregiver at baseline P: Pt to discharge home today via POV and continue with [employer] caregiver. SW will continue to follow for needs or MD orders that may arise prior to discharge. SW does not anticipate any discharge needs at this time. ASTRID Whitaker
--- NOTE | 2016-12-14 12:33 | PCM.DIMED ---
Discharge Instructions Date of Service Dec 14, 2016 Dates of Hospitalization Dec 10, 2016 at 19:29 Discharge Diagnosis Discharge Diagnosis acute dx Chronic respiratory failure due to COPD chest pain, likely GI origin chronic dx Hypertension, Tobacco dependence, Polyneuropathy, Psychiatric disorder Medication Instructions Additional med instructions Use Advair 1puff twice a day, regardless your breathing, this medicine will keep your airways stable. Please review the technique with Pharmacist when you pickling solution maker the medicine. If you feels shortness of breath, please use Combivent 2puffs every 4hours as needed Please continue Atorvastatin 40mg daily, cholesterol pill Please continue [id number] daily Diet Discharge Diet: No restrictions Activity Discharge Activity: No restrictions Call your provider Call your provider for: Shortness of breath, Chest pain Patient Instructions Patient Instructions You were hospitalized with chest pain, initially concerning for heart attack. Further workups including echocardiogram and stress test didn't reveal any active heart attack. Given your heart burn, you were started anti-acid medicine which subsided your pain, which indicated that this pain likely is from your stomach.You were also noted to have significant COPD with low oxygen level. You were started new inhaler and Oxygen therapy at home Please follow up with your primary doctor in 2weeks Please follow up medicine instruction as above Pleas note that if your symptoms continue, you will likely need to see GI doctor , which can be referred from primary doctor Follow-up Provider: [facility]-ASHLIE RICHARDS Follow-up with PCP in: 2 weeks Emily Givens MD Dec 14, 2016 12:33
[2016-12-14] MEDS ORDERED: IPRA3AMP IH (15:12)
--- NOTE | 2016-12-14 16:11 | NUR ---
discharge paperwork reviewed with pt and sister, no questions at this time. IV removed and tele DC'ed. pt denies pain/SOB/distress. belongings bagged and transported to private car by [facility] RN's. pt reminded that he has hard scripts and must stop by the pharmacy to fill, pt and sister agree.
--- NOTE | 2016-12-15 22:20 | PCM.DC.MED ---
Discharge Summary Date of Service Dec 14, 2016 Dates of Hospitalization Date of Hospital Admission Dec 10, 2016 at 19:29 Date of Discharge: Dec 14, 2016 Providers: Admitting Physician: Anita Maharaj DO Primary Care Physician: Heidi Cheung MD Attending Physician: Emily Hayden MD Diagnosis at Time of Discharge Diagnosis at Time of Discharge acute dx Chronic hypercapnic hypoxic respiratory failure due to COPD chest pain, likely GI origin chronic dx Hypertension, Tobacco dependence, Polyneuropathy, Psychiatric disorder Procedures XRay, CTs & MRIs X-RAY CHEST ONE VIEW, PORTABLE ([id number]) IMPRESSION: No interval change to indicate acute cardiopulmonary abnormality. Dictated by: Saul Jonas M.D. on 12/10/2016 at 17:16 Brief History HPI obtained by Dr. Maharaj pm 12/10 Chun Quintana is a 71 year old man with past history significant for COPD on CPAP which he uses intermittently, hypertension, and long history of smoking presented to [facility] emergency department today from urgent care due to shortness of breath and left-sided chest pressure daily intermittently for the last 3 weeks. Patient is a difficult historian given underlying mental illness, suspected schizophrenia. Records were reviewed to supplement patient's history. Patient states that this chest pain feels "similar to heartburn." Pertinent positives include shortness of breath, nausea, worsening pain on exertion. Patient also notes a productive cough with unchanged production. He denies any fevers, chills, hemoptysis, night sweats, orthopnea, paroxysmal nocturnal dyspnea. Patient was scheduled to undergo a spinal injection today when he complained of chest pain and was sent to urgent care for further evaluation. Patient currently denies any chest pain and states he has not had any chest pain since he has been in the hospital. In the emergency department his vital signs were stable. He was given 125 mg of Solu-Medrol, DuoNeb and albuterol nebulizers, full dose of aspirin, famotidine and 0.5 mg of clonazepam. Hospital Course Chun Quintana is a 71 year old man with past history significant for COPD on CPAP which he uses intermittently, hypertension, and long history of smoking presented to [facility] emergency department today from urgent care due to shortness of breath and left-sided chest pressure daily intermittently for the last 3 weeks. Acute dx Chest pain likely due to GI origin: PUD, GERD. pt underwent stress test 12/12 was equivocal. EKG, serial troponins, TTE were not suggestive of ACS. Patient then c/o more heartburn like chest pain, which responded well to PPI 40mg qd. Plan was to continue PPI and monitor symptoms, if it doesn't resolve, pt likely needs endoscopic eval by GI. Chronic hypercapnic respiratory failure due to Probable COPD exacerbation in the setting of chronic smoking, CXR was consistent with COPD but patient does not endorse this diagnosis, no acute infiltrate suggestive of PNA. Patient was given 125mg of Solu-Medrol in the ED but steroid was not continued. Respiratory viral PCR unremarkable. patient was initially noted to have respiratory distress, responded to duonebs q4h, Spo2 remained hypoxic, ABG showed chronic hypercapnic respiratory failure likely due to underlying untreated COPD, PCO2 54.3, also hypoxic Po2 50.8. Given poorly controlled COPD, Advair was initiated, pt tolerated well. Given chronic hypoxemia, SpO2 down to 82% on RA, chronic O2 supplement started 1liter NC at home. Chronic dx Hypertension, Continue home medications Tobacco dependence, controlled craves with Nicotine patch Polyneuropathy, Continue gabapentin Psychiatric disorder NOS, Continue home medications Exam Vital Signs (Last) Date Time Temp Pulse Resp B/P Pulse Ox O2 Delivery O2 Flow Rate FiO2 12/14/16 12:50 37.0 87 16 122/81 90 Nasal Cannula 1.00 Exam pt was examined on the day of d/c Test 12/10/16 16:30 12/10/16 20:05 12/10/16 22:08 12/11/16 01:30 D-Dimer < 0.50mg/L FEU (<0.50) Total Bilirubin 0.3mg/dL (0.0-1.2) Aspartate Amino Transf (AST/SGOT) 23U/L (0-50) Alanine Aminotransferase (ALT/SGPT) 12U/L (0-44) Alkaline Phosphatase 127U/L (25-160) Total Protein 7.7g/dL (6.4-8.4) Albumin 4.3g/dL (3.4-5.0) Hemoglobin A1c 6.0% (4.8-5.6) Magnesium Level 1.7mg/dL (1.6-2.6) Thyroid Stimulating Hormone (TSH) 0.556uIU/mL (0.450-4.500) Hold Gage Top Tube Received (Received) Urine Color Yellow (YELLOW) Urine Appearance Hazy (CLEAR,HAZY) Urine pH 6.5 (5.0-8.0) Urine Specific [place] 1.015 (1.003-1.035) Urine Protein Negativemg/dL (NEG,TRACE) Urine Glucose (UA) Negativemg/dL (NEGATIVE) Urine Ketones Negativemg/dL (NEGATIVE) Urine Occult Blood Negative (NEGATIVE) Urine Nitrite Negative (NEGATIVE) Urine Bilirubin Negative (NEGATIVE) Urine Urobilinogen Normalmg/dL (NORMAL) Urine Leukocyte Esterase Negative (NEGATIVE) Urine RBC 0-2/hpf (0-2) Urine WBC 0-5/hpf (0-5) Urine Epithelial Cells Occasional/hpf (NONE-MOD) Urine Crystals None seen (NONE SEEN) Urine Bacteria None/hpf (NONE-FEW) Urine Hyaline Casts None/lpf (NONE) Urine Granular Casts None seen (NONE SEEN) Urine Waxy Casts None seen (NONE SEEN) Urine Red Blood Cell Casts None seen (NONE SEEN) Urine White Blood Cell Casts None seen (NONE SEEN) Urine Mucus Present (None Seen) Urine Trichomonas None seen (NONE SEEN) Urine Yeast None (NONE SEEN) Urinalysis Comment None Urine Culture Reflexed Not indicated Hold Urine Received (Received) White Blood Count 4.4th/mm3 (3.8-10.1) Red Blood Count 4.08mil/mm3 (4.40-5.80) Hemoglobin 13.5g/dL (13.8-17.2) Hematocrit 40.7% (41.0-50.0) Mean Corpuscular Volume 99.8fL (81-100) Mean Corpuscular Hemoglobin 33.1pg (27.0-35.0) Mean Corpuscular Hemoglobin Concent 33.2% (32.0-37.0) Red Cell Distribution Width 12.2% (12.3-15.4) Platelet Count 194bil/L (150-400) Neutrophils (%) (Auto) 91.8% (40-74) Lymphocytes (%) (Auto) 7.3% (14-46) Monocytes (%) (Auto) 0.5% (4-12) Eosinophils (%) (Auto) 0% (0-5) Basophils (%) (Auto) 0.2% (0-3) Sodium Level 139mEq/L (134-144) Potassium Level 4.7mEq/L (3.5-5.2) Chloride Level 98mEq/L (97-108) Carbon Dioxide Level 28mmol/L (18-29) Blood Urea Nitrogen 20mg/dL (8-27) Creatinine 0.68mg/dL (0.76-1.27) Estimat Glomerular Filtration Rate 122mL/min (>59) Glucose Level 170mg/dL (60-99) Calcium Level 9.5mg/dL (8.5-10.1) Total Creatine Kinase 49U/L (21-232) Creatine Kinase MB 2.9ng/mL (0.0-10.4) Creatine Kinase MB % % (0.0-5.0) Troponin T 0.010ug/L (0.0-0.011) Triglycerides Level 53mg/dL (0-149) Cholesterol Level 173mg/dL (100-199) LDL Cholesterol, Calculated 96.400mg/dL (0-99) VLDL Cholesterol 10.600mg/dL HDL Cholesterol 66mg/dL (>39) Cholesterol/HDL Ratio 2.62 (0.0-4.4) Discharge Medications Discharge Medications Aspirin (Aspirin) 81 Mg Tablet 81 MG PO DAILY (Reported) Atorvastatin Calcium (Atorvastatin Calcium) 40 Mg Tablet 40 MG PO HS Prescribed by: EMILY HAYDEN MD Carbamazepine (Carbamazepine ER) 100 Mg Tab.er.12h 100 MG PO BID (Reported) Clonazepam (Clonazepam) 0.5 Mg Tablet 0.5 MG PO HS (Reported) Donepezil (Donepezil) 5 Mg Tablet 5 MG PO HS (Reported) Fluticasone Propionate (Fluticasone Propionate) 50 Mcg/Actuation [place].susp 15.8 ML NS BID (Reported) Fluticasone/Salmeterol (Advair 100-50 Diskus) 60 Puffs/Inh Disk 1 PUFF INHALATION BID Prescribed by: EMILY HAYDEN MD Folic Acid (Folic Acid) 1 Mg Tablet 1 MG PO DAILY (Reported) Furosemide (Furosemide) 20 Mg Tab 20 MG PO DAILY (Reported) Gabapentin (Gabapentin) 300 Mg Capsule 400 MG PO TID (Reported) Hydroxyzine Pamoate (HydrOXYzine Pamoate) 25 Mg Capsule 50 MG PO HS (Reported) Hydroxyzine Pamoate (HydrOXYzine Pamoate) 25 Mg Capsule 25 MG PO DAILYWM ( Reported) Ipratropium/Albuterol Sulfate (Iprat-Albut 0.5-3(2.5) mg/3 mL Inhalant Soln) 3 Ml Ampul.neb 3 ML IH Q6 Prescribed by: EMILY HAYDEN MD Lamotrigine (Lamotrigine) 25 Mg Tablet 25 MG PO BID (Reported) Lisinopril (Lisinopril) 5 Mg Tablet 5 MG PO DAILY (Reported) Nicotine 21 mg/24 hr Patch (Nicotine 21 mg/24 hr Patch) 1 Each Patch.td24 1 PATCH TOPICAL DAILY Prescribed by: EMILY HAYDEN MD Oxcarbazepine (Oxcarbazepine) 150 Mg Tablet 300 MG PO HS (Reported) Oxcarbazepine (Oxcarbazepine) 150 Mg Tablet 300 MG PO DAILYWL (Reported) Oxcarbazepine (Oxcarbazepine) 300 Mg Tablet 300 MG PO DAILYWL (Reported) Pantoprazole DR (Pantoprazole DR) 40 Mg Tablet.dr 40 MG PO DAILYAC Prescribed by: EMILY HAYDEN MD [id number]/Iron Fumarate/FA/Dss ( 19 Tablet) 1 Each Tablet 1 EACH PO DAILY ( Reported) Potassium Chloride ER (Potassium Chloride ER) 10 Meq Tablet 10 MEQ PO DAILY ( Reported) TAKE WITH FOOD Prazosin (Prazosin) 1 Mg Capsule 1 MG PO HS (Reported) Risperidone (Risperidone) 1 Mg Tablet 1 MG PO DAILY (Reported) Risperidone (Risperidone) 2 Mg Tablet 2 MG PO HS (Reported) Additional med instructions Use Advair 1puff twice a day, regardless your breathing, this medicine will keep your airways stable. Please review the technique with Pharmacist when you sisal picker the medicine. If you feels shortness of breath, please use Combivent 2puffs every 4hours as needed Please continue Atorvastatin 40mg daily, cholesterol pill Please continue [id number] daily Followup Plan Disposition: home Discharge Diet: No restrictions Discharge Activity: No restrictions Patient Instructions You were hospitalized with chest pain, initially concerning for heart attack. Further workups including echocardiogram and stress test didn't reveal any active heart attack. Given your heart burn, you were started anti-acid medicine which subsided your pain, which indicated that this pain likely is from your stomach.You were also noted to have significant COPD with low oxygen level. You were started new inhaler and Oxygen therapy at home Please follow up with your primary doctor in 2weeks Please follow up medicine instruction as above Pleas note that if your symptoms continue, you will likely need to see GI doctor , which can be referred from primary doctor Follow-up Provider: [facility]ASHLIE RICHARDS Follow-up with PCP in: 2 weeks Time spent 65min Emily Hayden MD Dec 15, 2016 22:20
== END 2016-12-14 16:01 | disposition home or self-care (01) | DRG 191 ==
LOC: SED 16:53 → MPC 19:29 → OBSVTOIN 19:29 → MPC 19:59
PROVIDERS: ADMIT Internal Medicine; ATTEND Internal Medicine
PROC: 4A033R1 Measurement of Arterial Saturation, Peripheral, Percutaneous Approach (ICD-10-PCS; principal; 2016-12-14)
DX: J44.1 Chronic obstructive pulmonary disease with (acute) exacerbation (principal); J96.12 Chronic respiratory failure with hypercapnia; I10 Essential (primary) hypertension; J45.909 Unspecified asthma, uncomplicated; F17.210 Nicotine dependence, cigarettes, uncomplicated; G62.9 Polyneuropathy, unspecified; F99 Mental disorder, not otherwise specified; R07.9 Chest pain, unspecified